=== PATIENT | female | born 1985 | race Caucasian/White ===

== ENCOUNTER 2025-05-03 10:27 | Emergency (ER) | payer BC, SELFPAY ==
[2025-05-03 10:35] VITALS: BP 125/85; PULSE 70; RESP 14; TEMP 36.7; O2SAT 99
[2025-05-03] MEDS: Lidocaine/Epinephri/Tetracaine Topical Gel 3 ML (11:00)
[2025-05-03 11:01] VITALS: BP 125/85; PULSE 70; RESP 14; TEMP 36.7; O2SAT 99
--- NOTE | 2025-05-03 12:03 | ED.GENADUL_ITS ---
Discharge Plan Disposition Patient Disposition: Home Condition: Good Discharge Details Clinical Impression: Dog bite Primary Care Provider: Joselyn,Local ED Provider: Dana Ptael Home Meds and New Rx's Prescriptions: New clindamycin HCl [Cleocin HCl] 300 mg capsule 300 mg PO TID 5 Days Qty: 14 0RF doxycycline hyclate 100 mg capsule 100 mg PO BID Qty: 9 0RF No Action levothyroxine [Euthyrox] 112 mcg tablet 112 mcg PO DAILY Discharge Instructions Instructions: Laceration Repair With Stitches ED Additional Instructions: Referral has been made to [facility] [place] hand surgery for your follow-up for evaluation/management of your dog bite. Have your stitches removed in 10 to 14 days. This can be done at an urgent care/express care or your primary care provider's office. There is an incidental finding on your x-ray that is a probable benign bone lesion. I recommend that you discuss this with your primary care provider/hand specialist for monitoring as needed. You were given an updated tetanus today. You are being given prophylactic antibiotics, please take the doxycycline and clindamycin as prescribed for the full course. You may use Tylenol 650 mg and ibuprofen 600 mg every 8 hours as needed for discomfort. Elevate your hand above heart level to help with swelling. Wash your hand daily with antibacterial soap and water. You may apply a thin layer of triple antibiotic ointment bacitracin if desired. Please use the splint provided to immobilize your hand to keep from stretching the skin at the joint. Keep an out for signs of infection such as redness, swelling, pus drainage, foul odor, increasing pain. Seek care immediately if you notice any of these. Discharge Data Discharge Date/Time-TO BE ENTERED AT DEPARTURE: 05/03/25 14:06 HPI <Dana Klein - Last Filed: 05/03/25 13:24> General Date/Time Provider Initiated Documentation: 05/03/25 10:39 . HPI Narrative: Patient is a 39-year-old female presents to the emergency department today for evaluation of dog bite to right fourth MCP joint. She reports that her dogs are resource guarding, got in a fight today over food. She got bitten when she attempted to separate the dogs. Denies other injuries. No distal numbness/tingling, is fully able to extend finger, but has difficulty flexing finger due to feeling of swelling. Bleeding well-controlled with gauze. Dogs are up-to-date for vaccinations, are family pets and received regular veterinary care. PMH significant for anxiety, Graves' disease, and other autoimmune conditions. Patient very sensitive to medications. Severe reaction to MMR vaccine as a child and anaphylactic reaction to influenza vaccine at age 22. Open to tetanus shot despite previous adverse reactions, Td preferred. Related Data Home Medications ?Medication ?Instructions ?Recorded ?Confirmed clindamycin HCl 300 mg capsule 300 mg PO TID 5 days #1 4 caps 05/03/25 (Cleocin HCl) doxycycline hyclate 100 mg capsule 100 mg PO BID #9 ca ps 05/03/25 levothyroxine 112 mcg tablet 112 mcg PO DAILY 05/03/25 05/03/25 (Euthyrox) Previous Rx's ?Medication ?Instructions ?Recorded clindamycin HCl 300 mg capsule 300 mg PO TID 5 days #1 4 caps 05/03/25 (Cleocin HCl) doxycycline hyclate 100 mg capsule 100 mg PO BID #9 ca ps 05/03/25 Allergies Allergy/AdvReac Type Severity Reaction Status Date / Time Latex, Natural Rubber Allergy Severe Anaphylaxis Verified 05/03/25 10:40 amoxicillin Allergy Intermediate Other (See Verified 05/03/25 10:40 Comment) Sulfa (Sulfonamide Allergy Intermediate Other (See Verified 05/03/25 10:41 Antibiotics) Comment) General Stated Complaint: AnimalBite JOHN: 4 Exam <Dana Klein [facility] Filed: 05/03/25 13:24> Narrative Exam Narrative: General Appearance: Normal. Vital signs: Within normal limits. Back, Musculoskeletal: Full extension of hand, significant pain and stiffness when bending. 1.3 linear laceration noted to fourth MCP, able to visualize intact tendon underneath. Foreign bodies visualized. Skin: Dog bite wound on hand, gaited extensively with 500 cc normal saline by tech, antisepsis with ChloraPrep. Neurological: +CMS to fingers, brisk cap refill. Psychiatric: Normal. Skin Other: Course <Danarebecca Ngohimi [facility] Filed: 05/03/25 13:24> Vital Signs Vital signs: Vital Signs Temperature 36.7 C 05/03/25 10:35 Pulse 70 05/03/25 10:35 Respiratory Rate 14 05/03/25 10:35 Blood Pressure 125/85 05/03/25 10:35 Pulse Oximetry 99 05/03/25 10:35 Temperature 36.7 C 05/03/25 11:01 Temperature Source Oral 05/03/25 11:01 Pulse 70 05/03/25 11:01 Respiratory Rate 14 05/03/25 11:01 Blood Pressure 125/85 05/03/25 11:01 Pulse Oximetry 99 05/03/25 11:01 Oxygen Delivery Method Room Air 05/03/25 11:01 Oxygen Flow Rate 0 05/03/25 11:01 Pain Level 6 05/03/25 11:01 Procedure <Dana Boyer Gianni Klein - Last Filed: 05/03/25 13:24> Laceration Laceration 1: Provider that performed the procedure: Dana Klein Patient Consented: Verbally Site: hand Side (If applicable): right Description: linear Depth: involves muscle layer Local anesthetic: Lidocaine 1% Amount of anesthesia used (mL): 1 Pre-repair:: wound explored Skin layer closed with: nylon Suture size: 5-0 Number of sutures:: 2 Technique: simple, interrupted Procedure Description/Note: Patient tolerated procedure well Medical Decision Making <Dana Knutsonmi Ernie - Last Filed: 05/03/25 13:24> Initial Assessment: 39-year-old female with dog bite on hand, reports stiffness and pain. No signs of infection at this time. No foreign bodies visualized. Red flags concerning for neurovascular compromise. As tendon is visualized, recommend close follow- up with hand surgery for further evaluation/management. ED Course: - Wound cleaned with soap and water, antisepsis with ChloraPrep - X-ray of hand; no acute abnormalities noted, incidental finding of bony lesion noted. - Edges of wound loosely approximated using two 5-0 Ethilon sutures after local anesthesia with 1 cc 1% lidocaine; and immobilized with 2 inch Ortho-Glass splint - Tetanus vaccine administered - Tylenol and ibuprofen for pain - Prophylaxis with clindamycin and doxycycline (patient has penicillin allergy) Final Assessment: Dog bite wound cleaned and stitched. X-ray obtained. Tetanus vaccine administered. Pain managed with Tylenol and ibuprofen. Clinical Impression: - Dog bite Disposition: - Discharge home with instructions to return if signs of infection or increased pain. -Referral made to hand specialist at [facility] [place] - Prophylaxis with antibiotics Follow-Up: - Follow up with PCP for wound check and further management. Patient Education: - Advised on signs of infection and when to seek medical attention. - Instructed on pain management with Tylenol and ibuprofen. Patient consented to the use of MARISEL Imaging Data Radiologic Study: Radiologist's impression: Exam(s) XR HAND RT COMPLETE EXAM: XR HAND RT COMPLETE CLINICAL HISTORY: animal bite. TECHNIQUE: 2D digital imaging was performed. COMPARISON: No exams were available for comparison FINDINGS: 3 views No evidence of acute fracture nor dislocation nor radiopaque foreign body in the hand and there is no gas in soft tissues. Bone density is normal in the hand with no evidence of osseous lesions nor erosions in the hand no evidence of osteomyelitis. Incidentally noted is a oval lucency in the distal radius measuring 1.4 by 0.5 cm. Probable benign bone lesion IMPRESSION: No acute osseous findings in the hand. Incidental note of non expansile bone lesion in the distal radius at the diaphysis-metaphysis junction with measurements as above. <Walker Kearns MD - Last Filed: 05/03/25 15:24> Date: 05/03/25 Time: 12:58 Note: Patient was seen and [employer] Gianni Klein. I agree with plan as documented and discussed. X-ray negative for fracture -this is an old finding noted. Extensor tendon exposed but intact with full extensor strength on my exam. Plan for copious irrigation and loose wound reapproximation. Will need tetanus prophylaxis and antibiotic prophylaxis. PFS <Dana Klein - Last Filed: 05/03/25 13:24> All Active Problems (Updated 05/03/25 @ 13:03 by Dana Klein) Dog bite (Acute) Social History Smoking/Tobacco Use Status: Never Smoking risk assessment performed?: Yes Alcohol Intake: never Drug use: Never Substance use type: does not use Do you feel safe at home: Yes Do you feel safe in your relationship?: Yes
--- NOTE | 2025-05-03 12:20 | DI.RAD_ITS ---
Exam(s) XR HAND RT COMPLETE EXAM: XR HAND RT COMPLETE CLINICAL HISTORY: animal bite. TECHNIQUE: 2D digital imaging was performed. COMPARISON: No exams were available for comparison FINDINGS: 3 views No evidence of acute fracture nor dislocation nor radiopaque foreign body in the hand and there is no gas in soft tissues. Bone density is normal in the hand with no evidence of osseous lesions nor erosions in the hand no evidence of osteomyelitis. Incidentally noted is a oval lucency in the distal radius measuring 1.4 by 0.5 cm. Probable benign bone lesion IMPRESSION: No acute osseous findings in the hand. Incidental note of non expansile bone lesion in the distal radius at the diaphysis-metaphysis junction with measurements as above. DATA REPOSITORY: RADIATION DOSE DELIVERED:
[2025-05-03] MEDS: Ibuprofen 600 MG TAB PO (12:37)
[2025-05-03] MEDS: Acetaminophen 500 MG TAB 1000 MG PO (12:37)
[2025-05-03] MEDS: Tetanus & Diphtheria Tox,ADULT 0.5 ML VIAL IM (13:29)
[2025-05-03] MEDS: Doxycycline Hyclate 100 MG CAP PO (13:29)
[2025-05-03] MEDS: Clindamycin 300 MG CAP PO (13:29)
[2025-05-03 13:56] VITALS: BP 120/89; PULSE 63; RESP 18; TEMP 36.9; O2SAT 96
== END 2025-05-03 14:06 | disposition home or self-care (01) ==
PROVIDERS: Emergency Provider Nurse Practitioner Family
DX: S61.411A Laceration without foreign body of right hand, initial encounter (principal); W54.0XXA Bitten by dog, initial encounter; Y93.K9 Activity, other involving animal care; Y92.018 Other place in single-family (private) house as the place of occurrence of the external cause; Z23 Encounter for immunization
CPT/HCPCS: 12001; 90471; 90714; 99283; 73130